=== PATIENT | female | born 1960 | race Caucasian/White ===

== ENCOUNTER 2016-12-30 23:14 | Emergency (ER) | payer OTHER ==
--- NOTE | ~2016-12-30 | CT71 ---
[facility] A Service [facility] RADIOLOGY TEXT RESULTS PATIENT: ADDIS MANE LOCATION: SED : 56 UNIT #: [id number] AGE: [address]: Edna Cuellar MD SEX: F ORDER DR: [id number] [place] [id number] E MR#: [id number] Acc #: [id number] NAME: ADDIS MANE : 1960 SEX: F STUDY DATE/TIME: 12/30/2016 23:43 UNIT: SED ROOM: STUDY DESCRIPTION: CT Head Wo Contrast Attending Physician: Edna Cuellar M.D. Ordering Physician: Physician Non-Staff Primary Care Physician: Andrea Pelayo M.D. MEDICAL IMAGING REPORT This report is preliminary unless electronic signature is present. EXAM CT head, noncontrast, 12/30/2016 HISTORY 56-year-old female in the ED complaining of 1-week history of headache and shoulder spasms. Headache has worsened this evening. TECHNIQUE CT examination of the head without IV contrast. This CT exam was performed with one or more of the following radiation dose reduction techniques: automatic exposure control, adjustment of mA and/or kV according to patient size, and iterative reconstruction. FINDINGS The examination is negative. No evidence of intracranial hemorrhage, mass, mass effect, cerebral edema, hydrocephalus or additional abnormality. IMPRESSION Negative head CT examination. Dictated by... Erick Newton M.D. THIS IS AN ELECTRONICALLY VERIFIED REPORT Erick Newton M.D. at 12/31/2016 10:06 PM WATSON/leeanna TD: 12/31/2016 12:59 JOB #: [id number] MEDICAL IMAGING REPORT [facility] A [facility] RADIOLOGY TEXT RESULTS PATIENT: ADDIS MANE LOCATION: SED : 56 UNIT #: [id number] AGE: [address]: Edna Cuellar MD SEX: F ORDER DR: Page 1 of 1
--- NOTE | ~2016-12-30 | CT52 ---
[facility] A Service [facility] RADIOLOGY TEXT RESULTS PATIENT: ADDIS MANE LOCATION: SED : 56 UNIT #: [id number] AGE: [address]: Edna Cuellar MD SEX: F ORDER DR: [id number] [place] [id number] E MR#: [id number] Acc #: [id number] NAME: ADDIS MANE. : 1960 SEX: F STUDY DATE/TIME: 12/30/2016 23:43 UNIT: SED ROOM: STUDY DESCRIPTION: CT Cervical Spine Wo Cont Attending Physician: Edna Cuellar M.D. Ordering Physician: Physician Non-Staff Primary Care Physician: Andrea Pelayo M.D. MEDICAL IMAGING REPORT This report is preliminary unless electronic signature is present. EXAM CT cervical spine 12/30/2016 HISTORY 56-year-old female in the ED complaining of 1-week history of headache with shoulder spasms. Headache has worsened today. TECHNIQUE Thin-section axial CT images were obtained from the skull base through the mid portion of T-tube. Sagittal and coronal images were reconstructed. The CT exam was performed with one or more of the following radiation dose reduction techniques: automatic exposure control, adjustment of mA and/or kV according to patient size, and iterative reconstruction. FINDINGS No acute or chronic fracture deformity or other osseous lesion is demonstrated. Moderately severe degenerative disc space narrowing and vertebral osteophyte formation at C4-5, C5-6 and C6-7. Bsyi-vq-hlbwgcyr degenerative facet arthropathy bilaterally throughout the cervical spine. Cervical vertebral alignment is normal. IMPRESSION 1. No acute osseous abnormality involving the cervical spine. 2. Impq-on-blzpyisf degenerative disc disease and facet arthropathy throughout the mid and lower cervical spine as noted. Cervical vertebral alignment is normal. Dictated by... [facility] A [facility] RADIOLOGY TEXT RESULTS PATIENT: ADDIS MANE LOCATION: SED : 56 UNIT #: [id number] AGE: [address]: Edna Cuellar MD SEX: F ORDER DR: Erick Newton M.D. THIS IS AN ELECTRONICALLY VERIFIED REPORT Erick Newton M.D. at 12/31/2016 10:06 PM WATSON/uday TD: 12/31/2016 12:58 JOB #: [id number] MEDICAL IMAGING REPORT Page 1 of 1
[~2016-12-30 23:14] MED LIST: AMARYL PO; METFORMIN PO; NEURONTIN PO; PREMARIN PO
[2016-12-30 23:44] LABS: BASOPHIL% 0.5 % (0-2.5); EOSINOPHIL# 0.3 X10e3 (0-0.7); EOSINOPHIL% 3.7 % (0.0-7.0); HEMATOCRIT 40.4 % (35.0-45.0); HEMOGLOBIN 13.4 gm/dL (12.0-16.0); LYMPHOCYTE# 2.5 X10e3 (1.0-3.5); LYMPHOCYTE% 26.5 % (17.0-45.0); MEAN CELL VOLUME 94.6 FL (83-96); MEAN CORPUSCULAR HEMOGLOBIN 31.3 PG (28-34); MEAN PLATELET VOLUME 8.8 FL (6.5-11.5); MONOCYTE# 0.3 X10e3 (0-1.0); MONOCYTE% 3.2 % (3.0-12.0); NEUTROPHIL# 6.2 X10e3 (1.5-7.1); NEUTROPHIL% 66.1 % (40-75); PLATELET COUNT 318 X10e3 (140-420); RED BLOOD COUNT 4.27 X10e (3.90-5.30); RED CELL DISTRIBUTION WIDTH 12.4 % (11.0-15.5); WHITE BLOOD COUNT 9.4 X10e3 (4.0-10.5)
[2016-12-30 23:45] LABS: DIFF IND NO
[2016-12-31 00:01] LABS: BLOOD UREA NITROGEN 23 mg/dL (9-23); CALCIUM SERUM 8.8 mg/dL (8.4-10.2); CARBON DIOXIDE 27 mmol/L (22-31); CHLORIDE 98 mmol/L (100-111); GLOM FILT RATE Estimated ABOVE60 mL/min (>60); GLUCOSE FASTING 239 mg/dL (70-110); POTASSIUM 4.1 mmol/L (3.5-5.1); SODIUM 131 mmol/L (135-145)
== END 2016-12-31 01:53 | disposition home or self-care (01) ==
LOC: SED 23:14
PROVIDERS: Emergency Medicine
DX: M50.120 Mid-cervical disc disorder, unspecified level (principal); F17.200 Nicotine dependence, unspecified, uncomplicated; E11.9 Type 2 diabetes mellitus without complications; I10 Essential (primary) hypertension; R51 Headache
CPT/HCPCS: 36415; 70450; 72125; 80048; 85025; 96374; 96375; 99284; J1885; J2270; J2405